=== PATIENT | male | born 1955 | race Caucasian/White ===

== ENCOUNTER 2021-01-06 12:21 | Outpatient (CLI) | payer MEDICARE, OTHER, SELFPAY ==
[2021-01-06 13:10] LABS: Hematocrit 44.2 % (42.0-52.0); Hemoglobin 15.1 g/dL (14.0-18.0); Mean Corpuscular HGB Conc 34.2 g/dl (32-36); Mean Corpuscular Hemoglobin 29.6 pg (26-34); Mean Corpuscular Volume 86.7 fl (80-100); Mean Platelet Volume 8.9 fl (7.4-10.4); Platelet Count Result 148 k/mm3 (150-375); Red Cell Distribution Width 12.2 % (11.5-14.5); White Blood Count 3.6 K/mm3 (4.5-10.0)
== END 2021-01-06 12:22 | disposition home or self-care (01) ==
PROVIDERS: PCP Internal Medicine; Visit Provider Internal Medicine
DX: D72.819 Decreased white blood cell count, unspecified (principal)
CPT/HCPCS: 36415; 85027

== ENCOUNTER 2023-01-23 13:26 | Outpatient (CLI) | payer MEDICARE, OTHER, SELFPAY ==
--- NOTE | ~2023-01-23 | US_ITS ---
Ultrasound of the left groin CLINICAL HISTORY: Hernia TECHNIQUE: Real-time sonographic imaging of the left groin was performed. FINDINGS: No hernia identified. No definite sonographic abnormality seen. IMPRESSION: No hernia identified. If there is persistent clinical concern for underlying mass, then MR imaging would be recommended as the most sensitive evaluation for peripheral soft tissue mass. Reviewed, dictated and finalized at [facility]. IMPRESSION: No hernia identified. If there is persistent clinical concern for underlying mass, then MR imaging wo uld be recommended as the most sensitive evaluation for peripheral soft tissue mass.
== END 2023-01-23 13:27 | disposition home or self-care (01) ==
LOC: CHSIMG 13:28
PROVIDERS: PCP Internal Medicine; Visit Provider Internal Medicine
DX: K46.9 Unspecified abdominal hernia without obstruction or gangrene (principal); M79.89 Other specified soft tissue disorders
CPT/HCPCS: 76882